=== PATIENT | male | born 1970 | race Caucasian/White ===

== ENCOUNTER → 2018-05-16 | Outpatient (CLI) | payer BC ==
[2018-05-16 16:21] LABS: HCT 46.4 % (39.0-53.0); HGB 15.5 gm/dL (13.0-17.5); MCH 28.6 pg (25.0-35.0); MCHC 33.3 g/dL (31.0-37.0); MCV 85.8 fL (80.0-100.0); Mean Platelet Volume 6.6; Platelet Count 227 k/uL (150-450); RBC 5.41 m/uL (4.30-5.90); RDW 13.1 % (11.5-15.5); WBC 7.1 k/uL (3.8-10.6)
[2018-05-16 16:33] LABS: ALT 51 U/L (21-72); AST 30 U/L (17-59); Albumin 4.7 g/dL (3.5-5.0); Alkaline Phosphatase 69 U/L (38-126); Anion Gap 11 mmol/L; Blood Urea Nitrogen 24 mg/dL (9-20); Calcium 9.6 mg/dL (8.4-10.2); Carbon Dioxide 25 mmol/L (22-30); Chloride 104 mmol/L (98-107); Cholesterol 209 mg/dL (<200); Glucose 85 mg/dL (74-99); HDL Cholesterol 43 mg/dL (40-60); LDL Cholesterol,Calculated 104 mg/dL (0-99); Potassium 4.4 mmol/L (3.5-5.1); Sodium 140 mmol/L (137-145); Total Bilirubin 0.7 mg/dL (0.2-1.3); Total Protein 7.4 g/dL (6.3-8.2); Triglycerides 312 mg/dL (<150)
[2018-05-17 04:00] LABS: Hemoglobin A1C 5.5 % (4.0-6.0)
[2018-05-17 06:42] LABS: Iron Saturation 21.28 (15.00-50.00)
[2018-05-17 06:52] LABS: Vitamin D 25 Hydroxy 17.5 ng/mL (30.0-100.0)
[2018-05-17 06:56] LABS: Folate, Serum 18.6 ng/mL
[2018-05-17 11:26] VITALS: BP 152/108; PULSE 70; RESP 15; TEMP 97.6; BMI 45.1
--- NOTE | 2018-07-17 13:19 | P.HPBAR ---
Bariatric H&P - History & Physicial H&P Date: 05/16/18 History & Physicial: Visit/CC: Patient initial contact: Initial weight: Initial weight in pounds: Height: Initial BMI: Last weight: Current weight: Current weight in pounds: Current BMI: Lucas body weight (based on NIH guidelines): Excess body weight loss: The patient is a 48 year-old M who presents for Bariatric Assessment. HPI: He is looking into the gastric bypass. He comes in with problems with hypertension and osteoarthritis. He is pending a knee replacement despite injections along the knee. He has to loose at least 100 pounds prior to his knee surgery. He has sleep apnea. Highest weight was 389 pounds. He often regains weight despite caloric restriction. ABDOMEN: Soft nontender PLAN: 1. Recommend EGD 2. Recommend EKG 3. He needs medically supervised weight loss for 7 months Past Medical History Past Medical History: Hyperlipidemia, Hypertension History of Any Multi-Drug Resistant Organisms: None Reported Past Surgical History: No Surgical Hx Reported Past Anesthesia/Blood Transfusion Reactions: No Reported Reaction Past Psychological History: No Psychological Hx Reported Smoking Status: Never smoker Past Alcohol Use History: None Reported Past Drug Use History: None Reported Results - Labs 05/16/18 15:30 05/16/18 15:30 Bariatric Checklist Checklist: Plan: Checklist: EGD: 1. Hiatal hernia: 2. H. Pylori: HgbA1c: Vitamin D: Smoking: Never smoker Primary care physician referral: Psychiatry clearance: Cardiology clearance: Sleep study: Diet journal: VTE risk score: VTE risk level: Rehab needs at discharge:
== END | disposition home or self-care (01) ==
LOC: BARWHC3 13:17 → EDBD 13:20
PROVIDERS: ATTEND Surgery Plastic and Reconstructive Surgery
DX: E66.01 Morbid (severe) obesity due to excess calories (principal); E88.81 Metabolic syndrome and other insulin resistance; D50.8 Other iron deficiency anemias; K91.2 Postsurgical malabsorption, not elsewhere classified; E44.0 Moderate protein-calorie malnutrition; E55.9 Vitamin D deficiency, unspecified; Z68.42 Body mass index [BMI] 45.0-49.9, adult
CPT/HCPCS: 36415; 80053; 80061; 82306; 82607; 82728; 82746; 83036; 83540; 83550; 84425; 84443; 85027; 93005; 99201

== ENCOUNTER → 2018-10-11 | Outpatient (CLI) | payer BC ==
--- NOTE | 2018-10-11 19:38 | CONS ---
CONSULTATION DATE OF SERVICE: 10/11/2018 48-year-old gentleman has been evaluated in the sleep center for possible obstructive sleep apnea-hypopnea syndrome. HISTORY OF PRESENT ILLNESS/SLEEP WAKE EVALUATION: SLEEP SCHEDULE: Patient's usual sleep schedule on working days from 10 or 12 midnight until 5 or 6 am and on weekends from midnight until 7 a.m. FALLING ASLEEP: Sometimes he has problem usually falling asleep although no TV in bedroom. DURING SLEEP: He sleeps in different positions with snoring and multiple awakenings from sleep, around four times with about 3 episodes of nocturia. Patient also wakes up with dry mouth. DURING THE DAY/SLEEP WAKE EVALUATION: In the morning, patient wakes up tired with difficulties to pay attention, falling asleep during the day, worries about his sleep, has problem with memory, concentration and irritability, anxiety, [place] Sleepiness Scale is 9. PAST MEDICAL HISTORY: Positive for hypertension, anxiety, hyperlipidemia, knee arthritis. PAST SURGICAL HISTORY: None. CURRENT MEDICATIONS: Atorvastatin, sertraline, amlodipine, vitamin D supplement, Centrum Silver, Bioflex. SOCIAL HISTORY: Negative for smoking. Alcohol consumption occasional. FAMILY HISTORY: Hypertension, hyperlipidemia, stroke, arthritis, sinus headaches, snoring, pneumonia, cancer, headaches, acid reflux, ulcers, diabetes, anemia, mental illness. REVIEW OF SYSTEMS: Multiple awakenings from sleep, tiredness and sleepiness during the day. Patient may take naps at noon time. He drinks up to 10 caffeinated beverages during the day. PHYSICAL EXAM: gentleman without distress. BP 130/98, HR 78, RR 16, height 6 feet 4 inches, weight 387 pounds, body mass index 47.2, temperature 97.1. Oxygen saturation on room air 99%. Oropharynx extremely low position of soft palate. Mallampati 4. Telescopic uvula, bilateral restriction of nasal breathing, wide neck 19 inches in circumference. ABDOMEN: Obese. Neck Supple, no JVD. Thyroid is not palpable. LUNGS Clear to percussion and to auscultation. Good air exchange. No wheezing or rhonchi. HEART S1, S2 regular. No murmurs, gallops, or rubs. ABDOMEN: Obese. Soft and nontender. Bowel sounds are present. No organomegaly appreciated. EXTREMITIES No clubbing or cyanosis. BILLET RECORDER Awake, alert, and oriented X3. Cranial nerves 2 to 7 intact. There is no fasciculation or atrophy. noted. No focal deficits observed. IMPRESSION: 1. Snoring, multiple awakenings from sleep with nocturia and dry mouth, extremely low position of soft palate, telescopic uvula, wide neck, obstructive sleep apnea- hypopnea syndrome. 2. Obesity, body mass index 47.2. 3. Hypertension. 4. Anxiety. 5. Hyperlipidemia. 6. Knee arthritis. 7. Restriction of nasal breathing, possibly nasal septum deviation. PLAN: 1. Home sleep apnea test. 2. CPAP/BiPAP titration if sleep study confirms obstructive sleep apnea-hypopnea syndrome. 3. Preferable position during sleep on the side. 4. No driving if patient feels any sleepiness. 5. I will see patient for follow up visit to explain results of testing and following plan. Thank you very much for referring this patient for consultation. Sincerely, Ganga Wakefield MD, PhD, FAASM Diplomat of [employer] Line Inspector [facility] Ryan MMODL / MARY LOUN: [phone] /
== END ==
LOC: SLEEP 14:05
PROVIDERS: ATTEND Internal Medicine
DX: G47.33 Obstructive sleep apnea (adult) (pediatric) (principal); E66.9 Obesity, unspecified; I10 Essential (primary) hypertension; F41.9 Anxiety disorder, unspecified; E78.5 Hyperlipidemia, unspecified; M17.9 Osteoarthritis of knee, unspecified; Z68.42 Body mass index [BMI] 45.0-49.9, adult; Z99.89 Dependence on other enabling machines and devices; Z79.899 Other long term (current) drug therapy
CPT/HCPCS: 99211

== ENCOUNTER → 2018-11-12 | Outpatient (CLI) | payer BC ==
[2018-11-12 09:54] VITALS: BMI 46.8
== END | disposition home or self-care (01) ==
LOC: BARWHC3 08:46
PROVIDERS: ATTEND Surgery Plastic and Reconstructive Surgery
DX: E66.01 Morbid (severe) obesity due to excess calories (principal); Z68.42 Body mass index [BMI] 45.0-49.9, adult
CPT/HCPCS: 97804

== ENCOUNTER → 2019-01-30 | Outpatient (CLI) | payer BC ==
[2019-01-30 16:24] LABS: ALT 43 U/L (21-72); AST 38 U/L (17-59); Albumin 4.9 g/dL (3.5-5.0); Alkaline Phosphatase 73 U/L (38-126); Anion Gap 12 mmol/L; Blood Urea Nitrogen 20 mg/dL (9-20); Calcium 9.9 mg/dL (8.4-10.2); Carbon Dioxide 26 mmol/L (22-30); Chloride 101 mmol/L (98-107); Glucose 81 mg/dL (74-99); Potassium 4.5 mmol/L (3.5-5.1); Sodium 139 mmol/L (137-145); Total Bilirubin 0.9 mg/dL (0.2-1.3); Total Protein 7.6 g/dL (6.3-8.2)
[2019-01-30 16:26] LABS: HGB 15.8 gm/dL (13.0-17.5); MCH 28.8 pg (25.0-35.0); MCHC 33.7 g/dL (31.0-37.0); MCV 85.6 fL (80.0-100.0); Mean Platelet Volume 6.7; Platelet Count 210 k/uL (150-450); RBC 5.49 m/uL (4.30-5.90)
[2019-01-30 17:37] LABS: Lymphocytes # (M) 3.06 k/uL (1.0-4.8); Monocytes # (M) 0.48 k/uL (0-1.0); Neutrophils # (M) 2.46 k/uL (1.3-7.7); Neutrophils % (M) 41 %; Nucleated Red Blood Cells 0 /100 WBC (0-0); Total Cells Counted 100
[2019-01-30 17:38] LABS: Large Platelets Present
== END | disposition home or self-care (01) ==
LOC: LABPAT 14:37
PROVIDERS: ATTEND Surgery Plastic and Reconstructive Surgery
DX: Z01.812 Encounter for preprocedural laboratory examination (principal)
CPT/HCPCS: 36415; 80053; 85025

== ENCOUNTER → 2019-01-30 | Outpatient (CLI) | payer BC ==
[2019-01-30 13:25] VITALS: BP 184/77; PULSE 70; RESP 18; TEMP 97.6; BMI 45.6
--- NOTE | 2019-01-30 14:13 | P.PN ---
Subjective Progress Note Date: 01/30/19 HPI: He reports generalized fatigue as he is on the 800 kcal diet. He is only doing 60 grams protein. He is drinking 90 oz. ABDOMEN: Nontender ASSESSMENT: 1. Morbid obesity 2. Osteoarthritis PLAN: 1. Recommend increase protein to 90 to 100 grams of protein 2. Increase fluids to over 120 ounces 3. Consent for bariatric procedure described. He is going for gastric bypass. Objective - Vital Signs Vital signs: Vital Signs Temp 97.6 F 01/30/19 13:22 Pulse 70 01/30/19 13:22 Resp 18 01/30/19 13:22 BP 184/77 01/30/19 13:22 Pulse Ox 98 01/30/19 13:22 Intake & Output 01/29/19 01/30/19 01/30/19 18:59 06:59 18:59 Weight 169.87 kg
== END ==
LOC: BARWHC3 12:55
PROVIDERS: ATTEND Surgery Plastic and Reconstructive Surgery
DX: E66.01 Morbid (severe) obesity due to excess calories (principal); M19.90 Unspecified osteoarthritis, unspecified site
CPT/HCPCS: 99211

== ENCOUNTER → 2019-02-07 | Outpatient (CLI) | payer BC ==
[2019-02-07 14:52] LABS: Basophils # (A) 0.1 k/uL (0-0.2); Basophils % (A) 1 %; Eosinophils # (A) 0.2 k/uL (0-0.7); Eosinophils % (A) 3 %; HGB 16.3 gm/dL (13.0-17.5); Lymphocytes # (A) 2.8 k/uL (1.0-4.8); Lymphocytes % (A) 46 %; MCH 28.4 pg (25.0-35.0); MCHC 33.2 g/dL (31.0-37.0); MCV 85.5 fL (80.0-100.0); Mean Platelet Volume 6.6; Monocytes # (A) 0.3 k/uL (0-1.0); Monocytes % (A) 5 %; Neutrophils # (A) 2.5 k/uL (1.3-7.7); Neutrophils % (A) 41 %; Platelet Count 249 k/uL (150-450); RBC 5.73 m/uL (4.30-5.90); RDW 12.7 % (11.5-15.5); WBC 6.1 k/uL (3.8-10.6)
[2019-02-07 15:18] LABS: ALT 42 U/L (21-72); AST 33 U/L (17-59); Albumin 4.7 g/dL (3.5-5.0); Alkaline Phosphatase 69 U/L (38-126); Anion Gap 10 mmol/L; Blood Urea Nitrogen 20 mg/dL (9-20); Calcium 9.6 mg/dL (8.4-10.2); Carbon Dioxide 24 mmol/L (22-30); Chloride 104 mmol/L (98-107); Glucose 89 mg/dL (74-99); Potassium 4.6 mmol/L (3.5-5.1); Sodium 138 mmol/L (137-145); Total Bilirubin 0.8 mg/dL (0.2-1.3); Total Protein 7.3 g/dL (6.3-8.2)
== END ==
LOC: LABPAT 13:52
PROVIDERS: ATTEND Surgery Plastic and Reconstructive Surgery
DX: Z01.812 Encounter for preprocedural laboratory examination (principal)
CPT/HCPCS: 80053; 85025; 93005

== ENCOUNTER 2019-02-11 06:56 | Inpatient (IN) | payer BC ==
--- NOTE | 2019-02-10 14:24 | P.GSHP ---
History of Present Illness H&P Date: 02/11/19 DATE OF SERVICE: 02/11/2019 CHIEF COMPLAINT: Morbid obesity HISTORY OF PRESENT ILLNESS: Rene Meade is a 48-year-old gentleman with long- standing obesity. He is looking into the gastric bypass. He comes in with problems with hypertension and osteoarthritis. He is pending a knee replacement despite injections along the knee. He has to loose at least 100 pounds prior to his knee surgery. He has sleep apnea. Highest weight was 389 pounds. He often regains weight despite caloric restriction. At height of 6 feet 4 inches, his ideal body weight is 204 pounds. He comes in 370 pounds. His highest weight was 389 pounds. His body mass index highest was 47.4. Today his BMI is 45.2. He is 166 pounds overweight. PAST MEDICAL HISTORY: 1. Morbid obesity due to excess calories 2. Body mass index of 47.4, initial 3. Osteoarthritis of the knees. 4. Osteoarthritis of the lower back. 5. Hypertensive heart disease. 6. Plantar fasciitis 7. Gastroesophageal reflux disease 8. Hyperlipidemia 9. Depressive disorder 10. Obstructive sleep apnea PAST SURGICAL HISTORY: Denies HOME MEDICATIONS: ALLERGIES: Home Medications Medication Instructions Recorded Confirmed Type Atorvastatin [Lipitor] 40 mg PO DAILY 05/16/18 05/16/18 History Multivitamin/Iron/Folic Acid 1 tab PO DIRECTED 05/16/18 05/16/18 History [Centrum Adults Tablet] Naproxen Sodium [Aleve] 1 tab PO DIRECTED 05/16/18 05/16/18 History Sertraline [Zoloft] 25 mg PO DAILY 05/16/18 05/16/18 History amLODIPine [Norvasc] 2.5 mg PO DAILY 05/16/18 05/16/18 History Allergies Allergy/AdvReac Type Severity Reaction Status Date / Time codeine AdvReac Hallucinati Verified 05/17/18 17:05 ons SOCIAL HISTORY: No past tobacco use. FAMILY HISTORY: No family history of ulcerative colitis disease or Crohn's disease. Family history of morbid obesity. No lupus in the family. No reports of stomach or esophageal cancer. REVIEW OF ORGAN SYSTEMS: CONSTITUTIONAL: At height of 6 feet 4 inches, his ideal body weight is 204 pounds. He comes in 370 pounds. His highest weight was 389 pounds. His body mass index highest was 47.4. Today his BMI is 45.2. He is 166 pounds overweight. HEENT: Denies any active troubles with vision or hearing. No troubles with swallowing. ENDOCRINE: No diabetes. No hypothyroidism. CARDIOVASCULAR: No reports of palpitations or heart attacks or chest pain. RESPIRATORY: Has daytime somnolence. No asthma. GI: Denies any bright red blood per rectum. No diarrhea. No constipation. MUSCULOSKELETAL: Has lower back pain and joint pain. Has osteoarthritis of the knees. NEURO: No headaches. No seizure disorders. PSYCH: Has depression. No suicidal ideation. RHEUMATOLOGIC: No lupus. No rheumatoid arthritis. HEMATOLOGIC: Denies any abnormal bleeding or bruising. No personal history of DVTs. SKIN: No rash. No skin cancer. PHYSICAL EXAM: VITAL SIGNS: Height 6 foot 4 inches, weight 370 pounds. BMI 45.2 GENERAL: Well-developed in no acute distress. HEENT: No scleral icterus. Extraocular movements grossly intact. Hears c onversational speech. No nasal drainage. NECK: Supple without lymphadenopathy. CHEST: Nonlabored respirations with equal bilateral excursions. CARDIOVASCULAR: Regular rate and regular rhythm. Distal 2+ pulses. ABDOMEN: Obese, soft, nontender, nondistended. MUSCULOSKELETAL: No clubbing, cyanosis. Gross strength 5/5 distal lower extremities. 1+ edema pre-tibial. NEURO: No focal or lateralizing signs. Cranial nerves 2 through 12 grossly within normal limits. PSYCH: Appropriate affect. Alert and oriented to person, place and time. SKIN: Good skin turgor. Well perfused. ASSESSMENT: 1. Morbid obesity due to excess calories 2. Body mass index of 47.4, initial 3. Osteoarthritis of the knees. 4. Osteoarthritis of the lower back. 5. Hypertensive heart disease. 6. Plantar fasciitis 7. Gastroesophageal reflux disease 8. Hyperlipidemia 9. Depressive disorder 10. Obstructive sleep apnea 11. Dietary surveillance and counseling PLAN: 1. Surgical options including a band, gastric bypass, sleeve gastrectomy were described in detail. Alternatives such as gastric balloon including duodenal switch were described. He has elected for the gastric bypass. Robotic-assisted approach reviewed. 2. The [place] bariatric surgical collaborative data and outcomes calculator were described with surgical options. 3. Two-week protein diet reviewed. 4. DVT prophylaxis. 5. Antibiotic prophylaxis. 6. He has completed cardiac risk assessment including cardiac clearance. Past Medical History Past Medical History: Hyperlipidemia, Hypertension, Osteoarthritis (OA) Additional Past Medical History / Comment(s): patient states he is in need of left knee replacement (HAS TORN MENISCUS), chronic bilateral knee pain History of Any Multi-Drug Resistant Organisms: None Reported Past Surgical History: No Surgical Hx Reported Additional Past Surgical History / Comment(s): EGD, COLONOSCOPY Past Anesthesia/Blood Transfusion Reactions: No Reported Reaction Smoking Status: Never smoker - Past Family History Mother Family Medical History: No Reported History Medications and Allergies Home Medications Medication Instructions Recorded Confirmed Type Atorvastatin [Lipitor] 40 mg PO DAILY 05/16/18 02/07/19 History Multivitamin/Iron/Folic Acid 1 tab PO DIRECTED 05/16/18 02/07/19 History [Centrum Adults Tablet] Sertraline [Zoloft] 25 mg PO DAILY 05/16/18 02/07/19 History amLODIPine [Norvasc] 7.5 mg PO DAILY 05/16/18 02/07/19 History Glucosamine/Chondr Patel A Sod [Osteo 1 each PO DAILY 02/07/19 02/07/19 History Bi-Flex Caplet] Allergies Allergy/AdvReac Type Severity Reaction Status Date / Time codeine AdvReac Hallucinati Verified 02/07/19 11:28 ons
[~2019-02-11 06:56] MED LIST: DEXAMETHASONE SOD PHOSPHATE 10 MG/ML 1 ML VIAL IV ONE; ENOXAPARIN 40 MG/0.4 ML SYRINGE SQ ONE; LIDOCAINE 1% 20 ML VIAL (10MG/ML) FOR IV START INTRADERMA PRN; MIDAZOLAM 2 MG/2 ML VIAL IV PRN; PANTOPRAZOLE 40 MG/10 ML VIAL IV ONE; ceFAZolin 3 GM in SODIUM CHLORIDE 0.9% 100 ML IVPB ONE
[2019-02-11] MEDS ORDERED: CHLORHEXIDINE GLUCONATE 15 ML CUP MUCOUS MEM ONE (07:00)
[2019-02-11] MEDS: LACTATED RINGERS 1,000 ML IV SCH ×2 (07:40→15:11)
[2019-02-11] MEDS ORDERED: GLYCOPYRROLATE 0.2 MG/ML 2 ML VIAL ONE (09:32)
[2019-02-11] MEDS ORDERED: ROCURONIUM BROMIDE 10 MG/ML 10 ML VIAL IV ONE (09:32)
[2019-02-11] MEDS ORDERED: fentaNYL (PF) 50 MCG/ML 2 ML AMP ONE (09:32)
[2019-02-11] MEDS ORDERED: NEOSTIGMINE 1 MG/ML 10 ML VIAL ONE (09:32)
[2019-02-11] MEDS ORDERED: HYDROmorphone (PF) 1 MG/ML ONE (09:32)
[2019-02-11] MEDS ORDERED: PHENYLEPHRINE-0.9% NACL SYG 1 MG/10 ML SYRINGE ONE (09:32)
[2019-02-11] MEDS ORDERED: LIDOCAINE 1% INJ 10MG/ML (20 ML MDV) ONE (09:32)
[2019-02-11] MEDS ORDERED: MIDAZOLAM 2 MG/2 ML VIAL ONE (09:32)
[2019-02-11] MEDS ORDERED: ONDANSETRON 4 MG/2 ML VIAL ONE (09:32)
[2019-02-11] MEDS ORDERED: PROPOFOL 10 MG/ML 20 ML VIAL IV ONE (09:32)
[2019-02-11] MEDS ORDERED: BUPIVACAIN-EPI 0.25%-1:200,000 30 ML VIAL SQ ONE (10:30)
[2019-02-11] MEDS ORDERED: LACTATED RINGERS 1,000 ML IV ONE ×3 (10:51→13:33)
[2019-02-11] MEDS ORDERED: NALOXONE 0.4 MG/ML 1 ML VIAL IV PRN (13:49)
[2019-02-11] MEDS ORDERED: ONDANSETRON 4 MG/2 ML VIAL IVP PRN (13:49)
[2019-02-11] MEDS ORDERED: diphenhydrAMINE 50 MG/ML 1 ML VIAL IVP PRN (13:49)
--- NOTE | 2019-02-11 14:03 | P.OP ---
Date of Procedure: 02/11/19 Description of Procedure: SURGEON: ENRRIQUE MONTES DE OCA MD PREOPERATIVE DIAGNOSES: 1. Morbid obesity due to excess calories 2. Body mass index of 47.4, initial 3. Osteoarthritis of the knees. 4. Osteoarthritis of the lower back. 5. Hypertensive heart disease. 6. Plantar fasciitis 7. Gastroesophageal reflux disease 8. Hyperlipidemia 9. Depressive disorder 10. Obstructive sleep apnea 11. Dietary surveillance and counseling POSTOPERATIVE DIAGNOSES: 1. Morbid obesity due to excess calories 2. Body mass index of 47.4, initial 3. Osteoarthritis of the knees. 4. Osteoarthritis of the lower back. 5. Hypertensive heart disease. 6. Plantar fasciitis 7. Gastroesophageal reflux disease 8. Hyperlipidemia 9. Depressive disorder 10. Obstructive sleep apnea 11. Dietary surveillance and counseling OPERATION: 1. Robotic assisted da Adriana Xi laparoscopic Bharath-en-Y gastric bypass, 75 cm antecolic antegastric Bharath limb, with 21 mm EEA. 2. Robotic assisted da Adriana Xi laparoscopic extensive lysis of adhesions proximal pole of stomach over 45 minutes 3. Esophagogastroduodenoscopy with removal of foreign body using snare technique 4. Intraoperative esophagogastrojejunoscopy ANESTHESIA: GETA and local ESTIMATED BLOOD LOSS: 10 mL SPECIMENS REMOVED: None. COMPLICATIONS: NONE. INDICATIONS: HISTORY OF PRESENT ILLNESS: Rene Meade is a 48-year-old gentleman with long-standing obesity. He is looking into the gastric bypass. He comes in with problems with hypertension and osteoarthritis. He is pending a knee replacement despite injections along the knee. He has sleep apnea. Highest weight was 389 pounds. At height of 6 feet 4 inches, his ideal body weight is 204 pounds. He comes in 372 pounds. His highest weight was 389 pounds. His body mass index highest was 47.4. Today his BMI is 45.4. He is 168 pounds overweight. A second-generation bariatric consent form was described in detail including the possibility of protein malnutrition, leaks, gastrojejunal stricture, venous thrombosis, need for further surgery for which she demonstrated understanding. Benefits and risks of the procedure were described at length. Informed consent was obtained. DESCRIPTION: The patient was brought into the operating room theater. He was placed supine. He had received Lovenox subcutaneously for DVT prophylaxis. Additionally he Peridex oral solution as an oral decontaminant was placed per anesthesia. After general induction, the abdomen was prepped and draped in standard sterile fashion. Ioban draping was placed along the abdomen. A robotic da Adriana Xi system was prepped and primed. The xiphoid to umbilicus was measured of 21 cm. Incisions were proposed at 15 c m from the xiphoid. Proposed port sites were marked with indelible marker along the anterior axillary line bilaterally, mid clavicular line bilaterally with each port marked 10 cm from each other. The robotic stapler port was marked for the right midclavicular line including along the left midclavicular line. A 5 mm 0 degrees laparoscopic trocar entry was performed along the left upper quadrant. The abdomen was insufflated to 15 mmHg pressure, which he tolerated well. Diagnostic laparoscopy demonstrated no injury to bowel, viscera, or mesentery. The liver demonstrated no hepatomegaly. An 8 mm camera port was placed left lateral to the umbilicus at the epigastrium, 15 cm distal to the xiphoid. Next, 12-mm robot stapler port was placed along the right mid abdomen. An 12 mm port was exchanged along the left upper quadrant. An 8 mm port was placed on the left lateral abdominal wall under direct visualization Please note that the ports were placed 18 to 20 cm away from the target anatomy of the stomach. Care was taken to check that each robotic arm was safely away from collision with the bed or the patient. At the epigastrium, a medium sized Bora liver retractor was placed under direct visualization with the Iron Pulp Mixer placed under the right shoulder of the patient. The patient was repositioned in reverse Trendelenburg position at 16-degrees after lowering the bed. The robot was docked over the patient. Using grasper for arm 3, a grasper for arm 1, including vessel sealer for arm 4, the robotic system was docked and primed as described. Instruments were interchanged by the teacher assistant including endoscissors, the needle dump truck driver, and stapler. I had sat at the console. Next, the transverse mesocolon was reflected into the upper abdomen after dividing the mesentery and preparing for the jejunojejunostomy portion of the case. The ligament of Treitz was identified and measured 60 cm antegrade and marked using 3-0 Silk. The jejunum was divided at the 60 cm point using 60-mm white loads above the suture measurement. The biliopancreatic limb was held in place. The Bharath limb was measured 75 cm in an antegrade fashion to avoid tension along the proposed gastrojejunal anastomosis. Moderate tension with short mesentery was identified at 100 cm, therefore 75 cm was used for the bypass. At 75 cm along the anti-mesenteric border of the Bharath limb, a jejunojejunostomy was proposed whereby enterotomies were created along the biliopancreatic limb including the Bharath limb using a Bovie cautery. A stay suture of 3-0 Slik was placed to align and create the anastomosis. The enterotomies along the anti-mesenteric borders were created followed by unidirectional fire from the patient's right side using 60 mm white load Smart technology robotic stapler. The jejunojejunostomy was found to be hemostatic. The enterotomy was closed after horizontal mattress stitch of 3-0 silk used to elevate the enterotomy followed by closure with the robotic stapler 60-mm blue load. The jejunal limb was temporarily tacked along the left upper quadrant. Attention was now brought to the creation of the gastrojejunostomy. Mushrooming at gastric cardia with dense adhesions was identified requiring extensive lysis of adhesions over 45 minutes and the superior pole of the stomach was also adherent to the diaphragm and spleen. Careful dissection was performed to avoid any injury to the spleen. Along the lesser curvature of the stomach between the second and third veins, dissection was made along the retrogastric space to allow first firing of the robotic staple. Green loads of 60 mm staplers were used to divide the stomach to create the gastric pouch. The patient was then prepared for placement of a Orvil. The patient was Mallampati 2. A 21-mm Orvil prepared for placement by the nurse administrative services officer. The Orvil tubing was placed into the oropharynx but could not be advance secondary to redundant posterior oropharyngeal tissue. An upper endoscopy was used to investigate the gastric pouch. The Olympus gastroscope was passed along the posterior oropharynx confirming moderate redundant tissue and the scope was advanced to the gastric pouch. The distance was torturous requiring placement of the Orvil using snare technique. A snare was passed via the scope to the gastric pouch where a gastrotomy was created using Bovie cautery. At the patient's side, the teacher assistant tunneled a separate snare via the left upper quadrant trocar. The snare of the teacher assistant was brought out through the mouth with the patient. The tubing of the Orvil was sutured using 2-0 nylon to the teacher assistant's snare. The teacher assistant's snare was pulled back through the left upper quadrant trocar under direct visualization. The Orvil was then carefully navigated into the gastric pouch. The sutures were identified and divided. The tubing was from the 21 mm anvil. I re-scrubbed into the case. The robotic arms were temporarily undocked. As the Orvil had been placed, the blind jejunal limb was brought proximally into the upper abdomen. No torsion was found upon the Bharath limb. No tension was identified as the limb was brought along the upper abdomen. The blind jejunal limb was previously opened using endo-scissors with cautery. The 21-mm EEA stapler was brought through the left anterior lateral port site from the left side. The EEA stapler was brought through the open jejunal limb and its needle was deployed at the antimesenteric border where the anvil were mated for approximately 1 minute upon firing. The stapler was removed after irrigating the shaft of the instrument with warm normal saline. Donuts were found to be intact and on both sides and thin on the gastric side. The da Adriana Xi robot arms were then re-docked. I sat at the console. The open jejunal limb defect was closed using 60 mm white loads after releasing any tension from the blind jejunal limb. Care was taken to avoid any long blind limb to avoid candycane syndrome. Reinforcement sutures were placed along the gastrojejunal anastomosis and placed along the 9:00 and 3 o'clock position using 3-0 Polysorb. The Narayan and jejunojejunostomy mesenteric defects were obliterated by her intra-abdominal fat. I then went to the head of the bed to perform the esophagogastrojejunoscopy and a leak test. An Olympus gastroscope was passed along the posterior oropharynx which was unremarkable for any injury to the vocal cords. The scope was passed down to the proximal portion of the pouch, whereby no active bleeding was encountered. Excellent visualization of the gastrojejunostomy anastomosis, including the Bharath limb was encountered with endoscopic image obtained. The anastomosis was found to be patent. The gastrointestinal tract was desufflated. No evidence of intraoperative leak was encountered as the gastric pouch and anastomosis were submerged under normal saline solution. The robot was then undocked. I then went back to the bedside of the patient, whereby with coordinated effort of the teacher assistant, irrigation was aspirated from the upper abdominal cavity. Tisseel was placed circumferentially over the anastomosis of the gastrojejunostomy. The fascial defect of the EEA stapler was closed using Deangelo Lopes and 0 Vicryl. All instruments and pneumoperitoneum were evacuated from the abdominal cavity. The port correlating with the EEA stapler device was cleansed with normal saline solution and hydrogen peroxide. The rest of incisions were reapproximated using 4-0 Monocryl in an interrupted subcuticular fashion. Local anesthetic was infiltrated along the skin for postop analgesia. Liquid glue was applied to the skin. OptiFoam dressing was placed along the EEA stapler site. At the end of the procedure, needle, sponge and instrument count had been verified correct by the assembler surgical garment. He had tolerated the procedure well and was extubated and taken to the postanesthesia unit in stable condition. Intraoperative findings were described to the patient's family who were very pleased with the level of care. Operative Findings: 1. Biliopancreatic limb 60 cm 2. Bypass performed using 75 cm bharath limb secondary to avoid increased tension at 150 cm. 3. Painting defect and jejunojejunostomy defect obliterated by moderate intra- abdominal fat. 4. Leak test negative with gastrojejunal anastomosis patent and hemostatic. 5. Moderate redundant posterior oropharynx prohibiting placement of Orvil, 21 mm 6. Snare technique to retrieve foreign body, 21-mm Orvil 7. Moderate tension with short mesentery at 100 cm, 75 cm use for bypass 8. Mushrooming at gastric cardia with dense adhesions requiring extensive lysis of adhesions 9. Reinforcement at 3:00 and 9 o'clock position with intact donuts 10. Total of 9 staple loads, 2 whites, 3 blues, 4 green 60 mm staplers 11. Console time 111 minutes
[2019-02-11] MEDS: HYDROmorphone 1 MG/ML 1 ML SYRINGE IVP ONE ×2 (14:14→14:20)
[2019-02-11] MEDS: fentaNYL (PF) 50 MCG/ML 2 ML AMP IV PRN ×2 (14:27→14:40)
[2019-02-11] MEDS: FENTANYL IV PRN (15:22)
[2019-02-11] MEDS: SODIUM CHLORIDE 0.9% IV PRN (15:22)
[2019-02-11] MEDS: 0.9% NACL WITH KCL 20 MEQ/L 1,000 ML IV SCH (15:33)
[2019-02-11] MEDS: ALBUTEROL NEBULIZED 2.5 MG/3 ML INHALATION SCH ×2 (16:06→20:11)
[2019-02-11] MEDS: ACETAMINOPHEN IV (For NPO) 1,000 MG in EMPTY BAG 1 BAG IVPB SCH (17:16)
[2019-02-11] MEDS: ceFAZolin 3 GM in SODIUM CHLORIDE 0.9% 100 ML IVPB SCH (17:57)
[2019-02-11] MEDS: SIMETHICONE 40 MG/0.6 ML DROPS 2,000 MG/30 ML BOTTLE PO SCH (17:58)
[2019-02-11] MEDS ORDERED: HYDROmorphone 1 MG/ML 1 ML SYRINGE IVP PRN (18:31)
[2019-02-12] MEDS: ACETAMINOPHEN IV (For NPO) 1,000 MG in EMPTY BAG 1 BAG IVPB SCH ×3 (01:14→11:21)
[2019-02-12] MEDS: SIMETHICONE 40 MG/0.6 ML DROPS 2,000 MG/30 ML BOTTLE PO SCH ×5 (01:15→23:25)
[2019-02-12] MEDS: 0.9% NACL WITH KCL 20 MEQ/L 1,000 ML IV SCH ×2 (01:48→03:36)
[2019-02-12] MEDS: ceFAZolin 3 GM in SODIUM CHLORIDE 0.9% 100 ML IVPB SCH (03:36)
[2019-02-12 08:28] LABS: Basophils % (A) 0 %; Eosinophils # (A) 0.1 k/uL (0-0.7); Eosinophils % (A) 1 %; HCT 42.7 % (39.0-53.0); Lymphocytes % (A) 20 %; MCH 27.9 pg (25.0-35.0); MCHC 32.7 g/dL (31.0-37.0); MCV 85.4 fL (80.0-100.0); Mean Platelet Volume 7.1; Monocytes # (A) 0.8 k/uL (0-1.0); Monocytes % (A) 8 %; Neutrophils # (A) 6.6 k/uL (1.3-7.7); Neutrophils % (A) 67 %; Platelet Count 187 k/uL (150-450); RBC 5.01 m/uL (4.30-5.90); RDW 14.5 % (11.5-15.5); WBC 9.8 k/uL (3.8-10.6)
[2019-02-12 08:41] LABS: Anion Gap 7 mmol/L; Blood Urea Nitrogen 13 mg/dL (9-20); Calcium 8.4 mg/dL (8.4-10.2); Carbon Dioxide 23 mmol/L (22-30); Chloride 108 mmol/L (98-107); Phosphorus 3.2 mg/dL (2.5-4.5); Potassium 4.3 mmol/L (3.5-5.1); Sodium 138 mmol/L (137-145)
[2019-02-12] MEDS: ENOXAPARIN 40 MG/0.4 ML SYRINGE SQ SCH (08:41)
[2019-02-12] MEDS: PANTOPRAZOLE 40 MG/10 ML VIAL IV SCH (08:41)
[2019-02-12] MEDS: ALBUTEROL NEBULIZED 2.5 MG/3 ML INHALATION SCH ×4 (08:52→21:06)
[2019-02-12] MEDS: LACTATED RINGERS 1,000 ML IV SCH (09:21)
[2019-02-12] MEDS: 1: MVI, ADULT NO.4 WITH VIT K 10 ML, THIAMINE 100 MG, FOLIC ACID 1 MG, POTASSIUM CHLORID IV SCH ×12 (12:09→22:19)
[2019-02-12 14:11] VITALS: BMI 45.3
[2019-02-12] MEDS: SODIUM CHLORIDE 0.9% IV PRN ×2 (18:09→18:16)
[2019-02-12] MEDS: FENTANYL IV PRN ×2 (18:09→18:16)
[2019-02-12] MEDS: SERTRALINE 25 MG TAB PO SCH (18:24)
--- NOTE | 2019-02-12 19:27 | P.PN ---
Progress Note - Text Progress Note Date: 02/12/19 Patient re-evaluated this evening. He complains of gas pains and post-incisional pain. Re-start home medications. Start liquid [place]. Re-asses for pain needs.
[2019-02-12] MEDS: ONDANSETRON 4 MG/2 ML VIAL IVP PRN (23:54)
[2019-02-13] MEDS: SIMETHICONE 40 MG/0.6 ML DROPS 2,000 MG/30 ML BOTTLE PO SCH (04:54)
--- NOTE | 2019-02-13 07:34 | P.PN ---
<JacobsJosefina Jenniffer - Last Filed: 02/13/19 07:27> Subjective Progress Note Date: 02/12/19 CHIEF COMPLAINT: Morbid obesity HISTORY OF PRESENT ILLNESS: 48-year-old male who underwent Andie-en-Y gastric bypass. POD #1. Patient states his pain is tolerable this morning. He i s utilizing a fentanyl ENTRY LEVEL RECRUITER. He denies nausea or vomiting. Tolerating clear liquid diet. Patient has been up in the hallway ambulating. Vital signs have been stable. WBC 9.8. Hemoglobin 14.0. Potassium 4.3. Phosphorus 3.2. Magnesium 2.0. PHYSICAL EXAM: VITAL SIGNS: Reviewed. GENERAL: Well-developed in no acute distress. HEENT: No sclera icterus. Extraocular movements grossly intact. Moist buccal mucosa. Head is atraumatic, normocephalic. ABDOMEN: Soft. Nondistended. Appropriate surgical tenderness. Incisions clean dry and intact without drainage. NEUROLOGIC: Alert and oriented. Cranial nerves II through XII grossly intact. ASSESSMENT: 1. Morbid obesity due to excess calories 2. Body mass index of 47.4, initial 3. Osteoarthritis of the knees. 4. Osteoarthritis of the lower back. 5. Hypertensive heart disease. 6. Plantar fasciitis 7. Gastroesophageal reflux disease 8. Hyperlipidemia 9. Depressive disorder 10. Obstructive sleep apnea 11. Dietary surveillance and counseling PLAN: 1. Continue clear liquid diet 2. Pain control 3. Activity as tolerated 4. Incentive spirometry 5. Monitor labs and vital signs 6. Accurate I&O Nurse practitioner note has been reviewed by physician. Signing provider agrees with the documented findings, assessment, and plan of care. Objective - Vital Signs Vital signs: Vital Signs Temp 97.9 F 02/13/19 01:26 Pulse 94 02/13/19 01:26 Resp 18 02/13/19 01:26 BP 150/90 02/13/19 01:26 Pulse Ox 93 L 02/13/19 01:26 Intake & Output 02/12/19 02/13/19 02/13/19 18:59 06:59 18:59 Intake Total 200 900 Output Total 1250 Balance -1050 900 Weight 169.19 kg Intake: Intake, IV Titration 900 Amount 0.9% NaCl with KCl 20 Meq 900 /l 1,000 ml @ 100 mls/hr IV .BY DURATION MARY Rx#: [id number] Oral 200 Output: Urine 1250 Uretheral (Capellan) 350 Other: Voiding Method Indwelling Catheter Urinal # Voids 3 - Labs CBC & Chem 7: 02/12/19 07:39 02/12/19 07:39 Labs: Abnormal Lab Results - Last 24 Hours (Table) 02/12/19 Range/Units 07:39 Chloride 108 H (98-107) mmol/L <Solis,Karen N - Last Filed: 02/13/19 12:03> Objective - Vital Signs Vital signs: Vital Signs Temp 97.7 F 02/13/19 07:30 Pulse 84 02/13/19 10:10 Resp 16 02/13/19 07:30 BP 160/99 02/13/19 07:30 Pulse Ox 95 02/13/19 07:30 Intake & Output 02/12/19 02/13/19 02/13/19 18:59 06:59 18:59 Intake Total 200 1921.2 Output Total 1250 Balance -1050 1921.2 Weight 169.19 kg Intake: Intake, IV Titration 1921.2 Amount 0.9% NaCl with KCl 20 Meq 900 /l 1,000 ml @ 100 mls/hr IV .BY DURATION [facility] Rx#: [id number] Mvi, Adult No.4 with Vit 1021.2 K 10 ml Thiamine 100 mg Folic Acid 1 mg Potassium Chloride 20 meq In Sodium Chloride 0.9% 1, 000 ml @ 100 mls/hr IV . BY DURATION MARY Rx#: [id number] Oral 200 Output: Urine 1250 Uretheral (Capellan) 350 Other: Voiding Method Indwelling Catheter Urinal # Voids 3 - Labs CBC & Chem 7: 02/12/19 07:39 02/12/19 07:39
[2019-02-13] MEDS: 1: MVI, ADULT NO.4 WITH VIT K 10 ML, THIAMINE 100 MG, FOLIC ACID 1 MG, POTASSIUM CHLORID IV SCH ×12 (07:41→09:07)
[2019-02-13 07:49] VITALS: BP 160/99; RESP 16; TEMP 97.7
[2019-02-13] MEDS: ENOXAPARIN 40 MG/0.4 ML SYRINGE SQ SCH (07:49)
[2019-02-13] MEDS: PANTOPRAZOLE 40 MG/10 ML VIAL IV SCH (07:50)
[2019-02-13] MEDS: SERTRALINE 25 MG TAB PO SCH (07:51)
[2019-02-13] MEDS ORDERED: amLODIPine 2.5 MG TAB PO SCH (09:00)
[2019-02-13] MEDS: HYDROcodone/APAP 15 ML SOLUTION PO PRN ×2 (09:15→12:30)
[2019-02-13] MEDS: ONDANSETRON 4 MG/2 ML VIAL IVP PRN (09:29)
[2019-02-13] MEDS: ALBUTEROL NEBULIZED 2.5 MG/3 ML INHALATION SCH ×2 (09:54→12:56)
[2019-02-13] MEDS: LACTATED RINGERS 1,000 ML IV SCH (10:30)
--- NOTE | 2019-02-13 11:44 | P.PN ---
<Josefina Jacobs Jenniffer - Last Filed: 02/13/19 11:41> Subjective Progress Note Date: 02/13/19 CHIEF COMPLAINT: Morbid obesity HISTORY OF PRESENT ILLNESS: 48-year-old male who underwent Andie-en-Y gastric bypass. POD #2. Patient examined this morning. He is sitting up in the chair. He reports last night he had a lot of gas pains, nausea, and some dry heaves, which have all resolved this morning. Currently rating pain 4/10. Pain is managed with Fentanyl ORACLE WMS CONSULTANT. Patient reports he has ambulated around the nursing unit 3 times this morning. Tolerating clear liquid diet this morning. Passing flatus. PHYSICAL EXAM: VITAL SIGNS: Reviewed. GENERAL: Well-developed in no acute distress. HEENT: No sclera icterus. Extraocular movements grossly intact. Moist buccal mucosa. Head is atraumatic, normocephalic. ABDOMEN: Soft. Nondistended. Appropriate surgical tenderness. Incisions clean dry and intact without drainage. NEUROLOGIC: Alert and oriented. Cranial nerves II through XII grossly intact. ASSESSMENT: 1. Morbid obesity due to excess calories 2. Body mass index of 47.4, initial 3. Osteoarthritis of the knees. 4. Osteoarthritis of the lower back. 5. Hypertensive heart disease. 6. Plantar fasciitis 7. Gastroesophageal reflux disease 8. Hyperlipidemia 9. Depressive disorder 10. Obstructive sleep apnea 11. Dietary surveillance and counseling PLAN: 1. Continue clear liquid diet 2. Pain control 3. Activity as tolerated 4. Incentive spirometry 5. Monitor labs and vital signs 6. Accurate I&O 7. Discontinue fentanyl ORACLE WMS CONSULTANT. Begin [place] elixir. 8. Anticipate discharge home this afternoon Nurse practitioner note has been reviewed by physician. Signing provider agrees with the documented findings, assessment, and plan of care. Objective - Vital Signs Vital signs: Vital Signs Temp 97.7 F 02/13/19 07:30 Pulse 84 02/13/19 10:10 Resp 16 02/13/19 07:30 BP 160/99 02/13/19 07:30 Pulse Ox 95 02/13/19 07:30 Intake & Output 02/12/19 02/13/19 02/13/19 18:59 06:59 18:59 Intake Total 200 1921.2 Output Total 1250 Balance -1050 1921.2 Weight 169.19 kg Intake: Intake, IV Titration 1920.2 Amount 0.9% NaCl with KCl 20 Meq 900 /l 1,000 ml @ 100 mls/hr IV .BY DURATION MARY Rx#: [id number] Mvi, Adult No.4 with Vit 1021.2 K 10 ml Thiamine 100 mg Folic Acid 1 mg Potassium Chloride 20 meq In Sodium Chloride 0.9% 1, 000 ml @ 100 mls/hr IV . BY DURATION MARY Rx#: [id number] Oral 200 Output: Urine 1250 Uretheral (Capellan) 350 Other: Voiding Method Indwelling Catheter Urinal # Voids 3 - Labs CBC & Chem 7: 02/12/19 07:39 02/12/19 07:39 <Augusta Ely N - Last Filed: 02/13/19 12:03> Objective - Vital Signs Vital signs: Vital Signs Temp 97.7 F 02/13/19 07:30 Pulse 84 02/13/19 10:10 Resp 16 02/13/19 07:30 BP 160/99 02/13/19 07:30 Pulse Ox 95 02/13/19 07:30 Intake & Output 02/12/19 02/13/19 02/13/19 18:59 06:59 18:59 Intake Total 200 1921.2 Output Total 1250 Balance -1050 1921.2 Weight 169.19 kg Intake: Intake, IV Titration 1921.2 Amount 0.9% NaCl with KCl 20 Meq 900 /l 1,000 ml @ 100 mls/hr IV .BY DURATION MARY Rx#: [id number] Mvi, Adult No.4 with Vit 1021.2 K 10 ml Thiamine 100 mg Folic Acid 1 mg Potassium Chloride 20 meq In Sodium Chloride 0.9% 1, 000 ml @ 100 mls/hr IV . BY DURATION MARY Rx#: [id number] Oral 200 Output: Urine 1250 Uretheral (Capellan) 350 Other: Voiding Method Indwelling Catheter Urinal # Voids 3 - Labs CBC & Chem 7: 02/12/19 07:39 02/12/19 07:39
--- NOTE | 2019-02-13 12:37 | P.PN ---
Progress Note - Text Progress Note Date: 02/13/19 Discharge instructions reviewed with at bedside. Overall, acute symptoms nausea and vomiting completely resolved. Patient is tolerating Dilaudid and [place] liquid. Will likely need discontinuance of codeine ALLERGY as he is able to tolerate. Patient stable for discharge
[2019-02-13 13:09] VITALS: PULSE 80
--- NOTE | 2019-02-14 17:48 | P.DS ---
Providers Date of admission: 02/11/19 06:56 Expected date of discharge: 02/13/19 Attending physician: Augusta Ely Primary care physician: Physician Nonstaff - Discharge Diagnosis(es) (1) Morbid obesity due to excess calories Status: Acute (2) Hypertensive heart disease Status: Acute (3) Osteoarthritis of knees, bilateral Status: Acute (4) Obstructive sleep apnea Status: Acute (5) Body mass index 45.0-49.9, adult Status: Acute Hospital Course: POSTOPERATIVE DIAGNOSES: 1. Morbid obesity due to excess calories 2. Body mass index of 47.4, initial 3. Osteoarthritis of the knees. 4. Osteoarthritis of the lower back. 5. Hypertensive heart disease. 6. Plantar fasciitis 7. Gastroesophageal reflux disease 8. Hyperlipidemia 9. Depressive disorder 10. Obstructive sleep apnea 11. Dietary surveillance and counseling INDICATIONS: HISTORY OF PRESENT ILLNESS: Rene Meade is a 48-year-old gentleman with long-standing obesity. He is looking into the gastric bypass. He comes in with problems with hypertension and osteoarthritis. He is pending a knee replacement despite injections along the knee. He has sleep apnea. Highest weight was 389 pounds. At height of 6 feet 4 inches, his ideal body weight is 204 pounds. He comes in 372 pounds. His highest weight was 389 pounds. His body mass index highest was 47.4. Today his BMI is 45.4. He is 168 pounds overweight. Post procedure, he had moderate post-procedure pain secondary to his low pain threshold. Prior to discharge, his pain was well controlled. He was tolerating diet. Discharge instructions were reviewed. Procedures: OPERATION: 1. Robotic assisted da Adriana Xi laparoscopic Andie-en-Y gastric bypass, 75 cm antecolic antegastric Anide limb, with 21 mm EEA. 2. Robotic assisted da Adriana Xi laparoscopic extensive lysis of adhesions proximal pole of stomach over 45 minutes 3. Esophagogastroduodenoscopy with removal of foreign body using snare technique 4. Intraoperative esophagogastrojejunoscopy Patient Condition at Discharge: Stable Plan - Discharge Summary Discharge Rx Participant: Yes New Discharge Prescriptions: New Bisacodyl [Dulcolax] 5 mg PO DAILY PRN #10 tablet. PRN Reason: Constipation Simethicone 40 mg/0.6 ml Drops [Mylicon Drops] 40 mg PO PCHS PRN #30 ml PRN Reason: gas Ondansetron Odt [Zofran Odt] 4 mg PO Q8HR PRN #9 tab PRN Reason: Nausea HYDROcodone/APAP [[place] Elixir 7.5-325Mg/15Ml] 15 ml PO Q4HR PRN 3 Days #270 ml PRN Reason: Pain Omeprazole 20 mg PO DAILY #30 cap Continue amLODIPine [Norvasc] 7.5 mg PO DAILY Sertraline [Zoloft] 25 mg PO DAILY Discontinued Atorvastatin [Lipitor] 40 mg PO DAILY Multivitamin/Iron/Folic Acid [Centrum Adults Tablet] 1 tab PO DAILY Glucosamine/Chondr Patel A Sod [Osteo Bi-Flex Caplet] 1 tab PO DAILY Discharge Medication List Sertraline [Zoloft] 25 mg PO DAILY 05/16/18 [History] amLODIPine [Norvasc] 7.5 mg PO DAILY 05/16/18 [History] Bisacodyl [Dulcolax] 5 mg PO DAILY PRN #10 tablet. 02/13/19 [Rx] HYDROcodone/APAP [[place] Elixir 7.5-325Mg/15Ml] 15 ml PO Q4HR PRN 3 Days #270 ml 02/13/19 [Rx] Omeprazole 20 mg PO DAILY #30 cap 02/13/19 [Rx] Ondansetron Odt [Zofran Odt] 4 mg PO Q8HR PRN #9 tab 02/13/19 [Rx] Simethicone 40 mg/0.6 ml Drops [Mylicon Drops] 40 mg PO PCHS PRN #30 ml 02/13/19 [Rx] Follow up Appointment(s)/Referral(s): [facility] Center,. [NON-STAFF] - 02/20/19 1:00 pm Patient Instructions/Handouts: Nutrition after Bariatric Surgery (DC), Andie-en-Y Gastric Bypass (DC) Activity/Diet/Wound Care/Special Instructions: NO lifting over 4 pounds in 4 weeks. May shower. No bathtub soaks. Dressings to be removed by your doctor in the office. Drink 64 oz of fluid daily. Start protein shakes on . Notify bariatric center for temp over 101.0, increased pain, drainage from incisions. No straws or carbonated beverages. Liquid diet only. Sugar content should be less than 6 g to avoid dumping syndrome. Take MOM for constipation. CRUSH, OPEN, OR CUT TABLETS LARGER THAN A SIZE OF A TIC TAC Discharge Disposition: HOME SELF-CARE
== END 2019-02-13 13:45 | disposition home or self-care (01) | DRG 621 ==
LOC: 2ORMAIN 06:56 → EDSTATUS 11:30 → 4SSUR 14:37
PROVIDERS: ADMIT Surgery Plastic and Reconstructive Surgery; ATTEND Surgery Plastic and Reconstructive Surgery
PROC: 0DNA4ZZ Release Jejunum, Percutaneous Endoscopic Approach (ICD-10-PCS; 2019-02-11)
PROC: 8E0W4CZ Robotic Assisted Procedure of Trunk Region, Percutaneous Endoscopic Approach (ICD-10-PCS; principal; 2019-02-11 08:30)
PROC: 0D164ZA Bypass Stomach to Jejunum, Percutaneous Endoscopic Approach (ICD-10-PCS; principal; 2019-02-11 08:30)
DX: E66.01 Morbid (severe) obesity due to excess calories (principal); Z68.42 Body mass index [BMI] 45.0-49.9, adult; M17.0 Bilateral primary osteoarthritis of knee; M47.9 Spondylosis, unspecified; I11.9 Hypertensive heart disease without heart failure; M72.2 Plantar fascial fibromatosis; K21.9 Gastro-esophageal reflux disease without esophagitis; K91.0 Vomiting following gastrointestinal surgery; E78.5 Hyperlipidemia, unspecified; K66.0 Peritoneal adhesions (postprocedural) (postinfection); H54.7 Unspecified visual loss; F32.9 Major depressive disorder, single episode, unspecified; G47.33 Obstructive sleep apnea (adult) (pediatric); Z79.899 Other long term (current) drug therapy; Z88.5 Allergy status to narcotic agent; Z98.890 Other specified postprocedural states
CPT/HCPCS: 36415; 80051; 82310; 82565; 83735; 84100; 84520; 85025; 86850; 86900; 86901; 94640; 94760; 94762

== ENCOUNTER → 2019-02-20 | Outpatient (CLI) | payer BC ==
[2019-02-20 14:29] VITALS: BP 126/72; PULSE 80; TEMP 97.7; BMI 40.8
--- NOTE | 2019-02-20 14:51 | P.PN ---
Subjective Progress Note Date: 02/20/19 HPI: He is 1 week out from his gastric bypass. No fevers or chills. No new abdominal pain. He is passing flatus and having abdominal pain. ABDOMEN: No infection ASSESSMENT: 1. Morbid obesity PLAN: 1. He has trouble getting enough protein 2. Goal protein of 90 to 100 grams daily 3. He is no longer using his knee brace and reports his joint pain is improved Objective - Vital Signs Vital signs: Vital Signs Temp 97.7 F 02/20/19 14:24 Pulse 80 02/20/19 14:24 Resp BP 126/72 02/20/19 14:24 Pulse Ox Intake & Output 02/19/19 02/20/19 02/20/19 18:59 06:59 18:59 Weight 152.407 kg
== END | disposition home or self-care (01) ==
LOC: BARWHC3 14:00
PROVIDERS: ATTEND Surgery Plastic and Reconstructive Surgery
DX: E66.01 Morbid (severe) obesity due to excess calories (principal); Z68.41 Body mass index [BMI] 40.0-44.9, adult; Z98.84 Bariatric surgery status
CPT/HCPCS: 97803; 99211

== ENCOUNTER → 2019-02-27 | Outpatient (CLI) | payer BC ==
[2019-02-27 15:00] VITALS: BP 101/74; PULSE 81; TEMP 98.2; BMI 39.9
--- NOTE | 2019-02-27 15:22 | P.PN ---
Subjective Progress Note Date: 02/27/19 HPI: He is still off any knee brace. He is doing very well. He reports fatigue. No fevers or chills. No dysphagia. He reports discomfort at the left upper quadrant incision. He got 100 grams of protein. He tried scramble egg and got sick. ABDOMEN: ASSESSMENT: 1. Morbid obesity PLAN: 1. Follow up 1 month post op 2. Continue fluids over 100 oz. daily 3. Recommend stop of blood pressure medication as he has hypotension Objective - Vital Signs Vital signs: Vital Signs Temp 98.2 F 02/27/19 14:57 Pulse 81 02/27/19 14:57 Resp BP 101/74 02/27/19 14:57 Pulse Ox Intake & Output 02/26/19 02/27/19 02/27/19 18:59 06:59 18:59 Weight 148.778 kg
== END ==
LOC: BARWHC3 14:03
PROVIDERS: ATTEND Surgery Plastic and Reconstructive Surgery
DX: E66.01 Morbid (severe) obesity due to excess calories (principal); R53.83 Other fatigue; Z68.39 Body mass index [BMI] 39.0-39.9, adult
CPT/HCPCS: 99211

== ENCOUNTER → 2019-03-20 | Outpatient (CLI) | payer BC ==
[2019-03-20 11:11] LABS: HCT 44.7 % (39.0-53.0); HGB 15.5 gm/dL (13.0-17.5); MCH 29.2 pg (25.0-35.0); MCHC 34.6 g/dL (31.0-37.0); MCV 84.3 fL (80.0-100.0); Mean Platelet Volume 7.6; Platelet Count 184 k/uL (150-450); RDW 13.4 % (11.5-15.5); WBC 6.4 k/uL (3.8-10.6)
[2019-03-20 11:20] LABS: Partial Thromboplastin Time 26.1 sec (22.0-30.0); Prothrombin Time 10.8 sec (9.0-12.0)
--- NOTE | 2019-03-20 12:02 | P.PN ---
Subjective Progress Note Date: 03/20/19 HPI: He reports tearing his left upper quadrant incisions open after clothes got stuck onto his scar. He has had drainage as a result. No fevers or chills. No knee brace. He has new shoes. His knees are feeling better. He reports occassional vomiting with dry chicken. He does well with canned chicken. He has lost 80+ pounds in 4 months. He lost 30 pounds in 1 month. PLAN: 1. He has gotten blood work today. 2. He has stopped his blood pressure medication 3. Start MVI 4. He is journaling his foods 5. He is getting over 75 grams of protein 6. Continue with Zantac Objective - Labs CBC & Chem 7: 03/20/19 10:55
[2019-03-20 12:09] VITALS: BP 130/83; PULSE 67; TEMP 97.9; BMI 37.2
[2019-03-20 17:51] LABS: Iron Saturation 21.69 (15.00-50.00)
[2019-03-20 17:52] LABS: Albumin 4.2 g/dL (3.80-4.90); Albumin/Globulin Ratio 2.33 (1.60-3.17); Anion Gap 9.3 mmol/L (4.00-12.00); Carbon Dioxide 23.7 mmol/L (21.6-31.8); Globulin 1.8 g/dL (1.6-3.3); LDL Cholesterol,Calculated 80.8 mg/dL (0.0-131.0); Magnesium 1.8 mg/dL (1.5-2.4); Phosphorus 3.7 mg/dL (2.4-5.1); Potassium 3.9 mmol/L (3.5-5.5); Total Bilirubin 0.9 mg/dL (0.3-1.2); VLDL Calculation 19.2 mg/dL (5.00-40.00)
[2019-03-20 18:01] LABS: Vitamin D 25 Hydroxy 29.1 ng/mL (30.0-100.0)
[2019-03-20 18:16] LABS: Folate, Serum 13.4 ng/mL
[2019-03-20 18:29] LABS: Parathyroid Hormone Intact 28.9 pg/mL (14.0-72.0)
[2019-03-20 19:04] LABS: Hemoglobin A1C 5.7 % (4.0-6.0)
[2019-03-21 13:06] LABS: Zinc, Serum 85 ug/dL (60-130)
[2019-03-22 06:45] LABS: Vitamin A 43 ug/dL (38-106)
[2019-03-22 07:29] LABS: Vit B1(Thiamine) 48 ug/L (38-122)
== END | disposition home or self-care (01) ==
LOC: BARWHC3 10:45
PROVIDERS: ATTEND Surgery Plastic and Reconstructive Surgery
DX: E66.01 Morbid (severe) obesity due to excess calories (principal); E21.1 Secondary hyperparathyroidism, not elsewhere classified; E89.1 Postprocedural hypoinsulinemia; D50.9 Iron deficiency anemia, unspecified; K90.9 Intestinal malabsorption, unspecified; E55.9 Vitamin D deficiency, unspecified; K76.9 Liver disease, unspecified; N19 Unspecified kidney failure; K50.90 Crohn's disease, unspecified, without complications; Z68.37 Body mass index [BMI] 37.0-37.9, adult
CPT/HCPCS: 80053; 80061; 82306; 82525; 82607; 82728; 82746; 83036; 83540; 83550; 83735; 83970; 84100; 84134; 84255; 84425; 84443; 84590; 84630; 85027; 85610; 85730; 97803; 99211

== ENCOUNTER → 2019-05-15 | Outpatient (CLI) | payer BC ==
[2019-05-15 14:13] VITALS: BP 118/68; PULSE 63; RESP 16; TEMP 98.1; BMI 33.7
--- NOTE | 2019-05-15 15:03 | P.PN ---
Subjective Progress Note Date: 05/15/19 HPI: He is no longer on a knee legal word processor. He has no further arthritis. He is 3 months out. He has dysphagia with textured foods. He has lost 100 pounds in 1 year. He has chest pain with eating textured foods. He reports dizzy spells. His protein intake is less than 75 grams. ABDOMEN: No hernia ASSESSMENT: 1. Morbid obesity 2. Dysphagia PLAN: 1. Labs 2. EGD with dilation. Objective - Vital Signs Vital signs: Vital Signs Temp 98.1 F 05/15/19 14:10 Pulse 63 05/15/19 14:10 Resp 16 05/15/19 14:10 BP 118/68 05/15/19 14:10 Pulse Ox Intake & Output 05/14/19 05/15/19 05/15/19 18:59 06:59 18:59 Weight 125.815 kg
== END | disposition home or self-care (01) ==
LOC: BARWHC3 13:51
PROVIDERS: ATTEND Surgery Plastic and Reconstructive Surgery
DX: E66.01 Morbid (severe) obesity due to excess calories (principal); R13.10 Dysphagia, unspecified; Z68.33 Body mass index [BMI] 33.0-33.9, adult
CPT/HCPCS: 97803; 99211

== ENCOUNTER 2019-06-17 10:44 | Day surgery (SDC) | payer BC ==
[2019-06-13 11:49] VITALS: BMI 31.0
--- NOTE | 2019-06-17 07:18 | P.GSHP ---
History of Present Illness H&P Date: 06/17/19 CHIEF COMPLAINT: GERD HISTORY OF PRESENT ILLNESS: The patient is a 49-year-old male who presents reports gastroesophageal reflux disease. Upper endoscopy was offered for further evaluation and management. PAST MEDICAL HISTORY: Please see list. PAST SURGICAL HISTORY: Please see list. MEDICATIONS: Please see list. ALLERGIES: Please see list. SOCIAL HISTORY: No illicit drug use FAMILY HISTORY: No reports of Crohn disease or ulcerative colitis. REVIEW OF ORGAN SYSTEMS: CONSTITUTIONAL: No reports of fevers or chills. GI: Denies any blood in stools or constipation. PHYSICAL EXAM: VITAL SIGNS: Stable GENERAL: Well-developed and pleasant in no acute distress. HEENT: No scleral icterus. Extraocular movements grossly intact. Moist buccal mucosa. NECK: Supple without lymphadenopathy. CHEST: Unlabored respirations. Equal bilateral excursions. CARDIOVASCULAR: Regular rate and rhythm. Distal 2+ pulses. ABDOMEN: Soft, nondistended. MUSCULOSKELETAL: No clubbing, cyanosis, or edema. ASSESSMENT: 1. Gastroesophageal reflux disease PLAN: 1. Recommend proceeding with an upper endoscopy Past Medical History Past Medical History: GERD/Reflux, Hyperlipidemia, Hypertension, Musculoskeletal Disorder Additional Past Medical History / Comment(s): TORN MENISCUS LT KNEE. UNABLE TO SWALLOW SOLIDS, FOOD GETS STUCK. History of Any Multi-Drug Resistant Organisms: None Reported Past Surgical History: Bariatric Surgery Additional Past Surgical History / Comment(s): EGD, COLONOSCOPY, Gastric Bypass 02-11-19 Past Anesthesia/Blood Transfusion Reactions: No Reported Reaction Smoking Status: Never smoker - Past Family History Mother Family Medical History: No Reported History Medications and Allergies Home Medications Medication Instructions Recorded Confirmed Type Calcium Citrate 500 mg PO TID 03/25/19 06/13/19 History Cholecalciferol (Vitamin D3) 10,000 units PO DAILY 03/25/19 06/13/19 History [Vitamin D3] Multivitamin with Iron 1 each PO DAILY 03/25/19 06/13/19 History [Multivitamins with Iron] Iron 50 Mg 50 mg PO DAILY 06/13/19 History Vitamin B Nasal 1 applic NASAL WE 06/13/19 History Allergies Allergy/AdvReac Type Severity Reaction Status Date / Time omeprazole Allergy Rash/Hives Verified 06/13/19 11:36 codeine AdvReac Hallucinati Verified 06/13/19 11:36 ons
[~2019-06-17 10:44] MED LIST changes: -DEXAMETHASONE SOD PHOSPHATE 10 MG/ML 1 ML VIAL IV ONE; -ENOXAPARIN 40 MG/0.4 ML SYRINGE SQ ONE; +LACTATED RINGERS 1,000 ML IV SCH; -MIDAZOLAM 2 MG/2 ML VIAL IV PRN; -PANTOPRAZOLE 40 MG/10 ML VIAL IV ONE; -ceFAZolin 3 GM in SODIUM CHLORIDE 0.9% 100 ML IVPB ONE
[2019-06-17 11:00] VITALS: TEMP 98.2
[2019-06-17] MEDS ORDERED: LIDOCAINE 1% INJ 10MG/ML (20 ML MDV) ONE (12:01)
[2019-06-17] MEDS ORDERED: PROPOFOL 10 MG/ML 20 ML VIAL IV ONE (12:01)
[2019-06-17] MEDS ORDERED: GLYCOPYRROLATE 0.2 MG/ML 2 ML VIAL ONE (12:01)
--- NOTE | 2019-06-17 12:30 | P.PCN ---
Date of Procedure: 06/17/19 Description of Procedure: PREOPERATIVE DIAGNOSIS: Dysphagia. Gastroesophageal reflux disease POSTOPERATIVE DIAGNOSIS: Dysphagia. Gastroesophageal reflux disease Gastrojejunal stricture with chronic ulcer without perforation OPERATION: Esophagogastrojejunoscopy with balloon dilatation from 8 to 11 mm. SURGEON: Augusta Ely MD ANESTHESIA: MAC. INDICATIONS: The patient is a 49-year-old male who presents with a history of dysphagia, gastric bypass including new-onset nausea and vomiting. Benefits and risks of the procedure were described. Informed consent was obtained. DESCRIPTION: The patient was brought into the endoscopy suite and laid in the left lateral decubitus position. After a timeout was confirmed, the procedure was initiated. An Olympus gastroscope was passed along the posterior oropharynx down to the distal esophagus where the squamocolumnar junction was unremarkable. The gastric pouch was entered. A gastrojejunal stricture of 8 mm was found as the adult gastroscope was 9.5 mm in size. A Sanrad balloon dilator was placed through the scope. Final insufflation up to 11 mm was performed with a total of 2 minutes. The scope was advanced up to 60 cm from the incisors into the Andie limb. The mucosa of the gastrojejunal anastomosis was intact. However research programmer christian gastrojejunal marginal ulcer was encountered. No full-thickness injury was encountered. The GI tract was desufflated. The patient tolerated the procedure well. FINDINGS: Stricture of approximately 8 mm encountered. Chronic gastrojejunal ulceration encountered. Successful balloon dilatation to 11 mm. RECOMMENDATIONS: Start combined therapy of Carafate and Zantac of at least 4 weeks. Plan - Discharge Summary Discharge Rx Participant: No New Discharge Prescriptions: New Sucralfate [Carafate] 1 gm PO BID #480 ml Ranitidine HCl [Zantac] 150 mg PO BID #30 tablet No Action Multivitamin with Iron [Multivitamins with Iron] 1 each PO DAILY Cholecalciferol (Vitamin D3) [Vitamin D3] 10,000 units PO DAILY Calcium Citrate 500 mg PO TID Vitamin B Nasal 1 applic NASAL WE Iron 50 Mg 50 mg PO DAILY Discharge Medication List Calcium Citrate 500 mg PO TID 03/25/19 [History] Cholecalciferol (Vitamin D3) [Vitamin D3] 10,000 units PO DAILY 03/25/19 [History] Multivitamin with Iron [Multivitamins with Iron] 1 each PO DAILY 03/25/19 [History] Iron 50 Mg 50 mg PO DAILY 06/13/19 [History] Vitamin B Nasal 1 applic NASAL WE 06/13/19 [History] Ranitidine HCl [Zantac] 150 mg PO BID #30 tablet 06/17/19 [Rx] Sucralfate [Carafate] 1 gm PO BID #480 ml 06/17/19 [Rx] [place] [facility]ment([facility] Patient Instructions/Handouts: Esophageal Dilation (DC), Full Liquid Diet (DC), Complete Blenderized Diet (DC) Activity/Diet/Wound Care/Special Instructions: Liquid diet for the next 24-48 hours. Warm beverages. Use medications pre scribed to local pharmacy Discharge Disposition: HOME SELF-CARE
[2019-06-17 12:51] VITALS: BP 132/84; PULSE 45; RESP 18
== END 2019-06-17 13:30 | disposition home or self-care (01) ==
LOC: ORWHC2ENDO 10:44
PROVIDERS: ATTEND Surgery Plastic and Reconstructive Surgery
DX: K95.89 Other complications of other bariatric procedure (principal); K28.7 Chronic gastrojejunal ulcer without hemorrhage or perforation; K31.89 Other diseases of stomach and duodenum; K21.9 Gastro-esophageal reflux disease without esophagitis; R13.10 Dysphagia, unspecified; Z98.84 Bariatric surgery status; Z88.5 Allergy status to narcotic agent; Z88.8 Allergy status to other drugs, medicaments and biological substances; I10 Essential (primary) hypertension; E78.5 Hyperlipidemia, unspecified
CPT/HCPCS: 43245; J2001; J2704; C1726

== ENCOUNTER 2019-07-15 07:37 | Day surgery (SDC) | payer BC ==
[2019-07-11 13:16] VITALS: BMI 29.8
--- NOTE | 2019-07-14 19:35 | P.GSHP ---
History of Present Illness H&P Date: 07/15/19 CHIEF COMPLAINT: GERD HISTORY OF PRESENT ILLNESS: The patient is a 49-year-old male who presents reports gastroesophageal reflux disease. Upper endoscopy was offered for further evaluation and management. PAST MEDICAL HISTORY: Please see list. PAST SURGICAL HISTORY: Please see list. MEDICATIONS: Please see list. ALLERGIES: Please see list. SOCIAL HISTORY: No illicit drug use FAMILY HISTORY: No reports of Crohn disease or ulcerative colitis. REVIEW OF ORGAN SYSTEMS: CONSTITUTIONAL: No reports of fevers or chills. GI: Denies any blood in stools or constipation. PHYSICAL EXAM: VITAL SIGNS: Stable GENERAL: Well-developed and pleasant in no acute distress. HEENT: No scleral icterus. Extraocular movements grossly intact. Moist buccal mucosa. NECK: Supple without lymphadenopathy. CHEST: Unlabored respirations. Equal bilateral excursions. CARDIOVASCULAR: Regular rate and rhythm. Distal 2+ pulses. ABDOMEN: Soft, nondistended. MUSCULOSKELETAL: No clubbing, cyanosis, or edema. ASSESSMENT: 1. Gastroesophageal reflux disease PLAN: 1. Recommend proceeding with an upper endoscopy Past Medical History Past Medical History: GERD/Reflux, Hyperlipidemia, Hypertension, Musculoskeletal Disorder Additional Past Medical History / Comment(s): TORN MENISCUS LT KNEE. UNABLE TO SWALLOW SOLIDS, FOOD GETS STUCK. History of Any Multi-Drug Resistant Organisms: None Reported Past Surgical History: Bariatric Surgery Additional Past Surgical History / Comment(s): EGD, COLONOSCOPY, Gastric Bypass 02-11-19 Past Anesthesia/Blood Transfusion Reactions: No Reported Reaction Smoking Status: Never smoker - Past Family History Mother Family Medical History: No Reported History Medications and Allergies Home Medications Medication Instructions Recorded Confirmed Type Cholecalciferol (Vitamin D3) 10,000 units PO DAILY 03/25/19 07/11/19 History [Vitamin D3] Multivitamin with Iron 1 each PO DAILY 03/25/19 07/11/19 History [Multivitamins with Iron] Iron 50 Mg 50 mg PO DAILY 06/13/19 07/11/19 History Vitamin B Nasal 1 applic NASAL WE 06/13/19 07/11/19 History Sucralfate [Carafate] 1 gm PO BID #480 ml 06/17/19 07/11/19 Rx Allergies Allergy/AdvReac Type Severity Reaction Status Date / Time omeprazole Allergy Rash/Hives Verified 06/17/19 10:55 codeine AdvReac Hallucinati Verified 06/17/19 10:55 ons
[~2019-07-15 07:37] MED LIST changes: -LIDOCAINE 1% 20 ML VIAL (10MG/ML) FOR IV START INTRADERMA PRN
[2019-07-15 07:57] VITALS: TEMP 97.7
[2019-07-15] MEDS ORDERED: LIDOCAINE 1% INJ 10MG/ML (20 ML MDV) ONE (08:13)
[2019-07-15] MEDS ORDERED: PROPOFOL 10 MG/ML 20 ML VIAL IV ONE (08:13)
--- NOTE | 2019-07-15 08:28 | P.PCN ---
Date of Procedure: 07/15/19 Description of Procedure: PREOPERATIVE DIAGNOSIS: Dysphagia. History of gastrojejunal stricture with ulcer POSTOPERATIVE DIAGNOSIS: Dysphagia. Gastrojejunal stricture with chronic ulcer without perforation OPERATION: Esophagogastrojejunoscopy with balloon dilatation from 9 to 15 mm. SURGEON: Augusta Ely MD ANESTHESIA: MAC. INDICATIONS: The patient is a 49-year-old male who presents with a history of dysphagia and gastrojejunal stricture. Benefits and risks of the procedure were described. Informed consent was obtained. DESCRIPTION: The patient was brought into the endoscopy suite and laid in the left lateral decubitus position. After a timeout was confirmed, the procedure was initiated. An Olympus gastroscope was passed along the posterior oropharynx down to the distal esophagus where the squamocolumnar junction was unremarkable. The gastric pouch was entered. A gastrojejunal stricture of 9 mm was found as the adult gastroscope was 9.5 mm in size. A [email or web address] balloon dilator was placed through the scope. Final insufflation up to 15 mm was performed with a total of 2 minutes. The scope was advanced up to 60 cm from the incisors into the Andie limb. The mucosa of the gastrojejunal anastomosis was intact. However chronic gastrojejunal marginal ulcer was encountered. No full-thickness injury was encountered. The GI tract was desufflated. The patient tolerated the procedure well. FINDINGS: Stricture of approximately 9 mm encountered. Chronic gastrojejunal ulceration encountered. Successful balloon dilatation to 15 mm. RECOMMENDATIONS: Continue Carafate and Zantac Advanced diet to pureed Plan - Discharge Summary Discharge Rx Participant: No New Discharge Prescriptions: No Action Multivitamin with Iron [Multivitamins with Iron] 1 each PO DAILY Cholecalciferol (Vitamin D3) [Vitamin D3] 10,000 units PO DAILY Vitamin B Nasal 1 applic NASAL WE Iron 50 Mg 50 mg PO DAILY Sucralfate [Carafate] 1 gm PO BID #480 ml Discharge Medication List Cholecalciferol (Vitamin D3) [Vitamin D3] 10,000 units PO DAILY 03/25/19 [History] Multivitamin with Iron [Multivitamins with Iron] 1 each PO DAILY 03/25/19 [History] Iron 50 Mg 50 mg PO DAILY 06/13/19 [History] Vitamin B Nasal 1 applic NASAL WE 06/13/19 [History] Sucralfate [Carafate] 1 gm PO BID #480 ml 06/17/19 [Rx]
[2019-07-15 08:49] VITALS: PULSE 55; RESP 18
[2019-07-15 09:08] VITALS: BP 136/85
== END 2019-07-15 09:15 | disposition home or self-care (01) ==
LOC: ORWHC2ENDO 07:37
PROVIDERS: ATTEND Surgery Plastic and Reconstructive Surgery
DX: K95.89 Other complications of other bariatric procedure (principal); K25.7 Chronic gastric ulcer without hemorrhage or perforation; K21.9 Gastro-esophageal reflux disease without esophagitis; E78.5 Hyperlipidemia, unspecified; I10 Essential (primary) hypertension; Z79.899 Other long term (current) drug therapy; Z88.5 Allergy status to narcotic agent; Z88.8 Allergy status to other drugs, medicaments and biological substances
CPT/HCPCS: 43245; J2001; J2704; C1726